=== PATIENT | male | born 1965 | race American Indian/Alaskan Native ===

== ENCOUNTER 2018-09-17 08:23 | Emergency (ER) | payer SELFPAY ==
--- NOTE | 2018-09-17 09:37 | Emergency Department Report ---
HPI - General Chief Complaint: Back Pain/Injury Time Seen by Provider: 09/17/18 09:04 - HPI HPI: Mr. Knowles is a 53-year-old male present with no problem medical condition presents ED complaining of lower right-sided foot pain that radiates down his thigh. Patient denies any recent injury. Patient states she has a history of disc herniation for the past 3 years. Patient states that it's aggravated intermittently. He denies fall, trauma or any other complaints ED Past Medical Hx - Past Medical History Hx Diabetes: Yes - Surgical History Additional Surgical History: HERNIA - Social History Smoking Status: Never Smoker Substance Use Type: None - Medications Home Medications: Home Medications Medication Instructions Recorded Confirmed Last Taken Type Cyclobenzaprine [Flexeril] 10 mg PO QHS #20 tablet 09/17/18 Unknown Rx Meloxicam [Mobic] 7.5 mg PO BID #20 tablet 09/17/18 Unknown Rx ED Review of Systems ROS: Stated complaint: BACK PAIN Other details as noted in HPI Comment: All other systems reviewed and negative Physical Exam - Physical Exam Vital Signs: Vital Signs 09/17/18 08:34 Temperature 98 F Pulse Rate 93 H Blood Pressure 166/93 O2 Sat by Pulse 99 Oximetry Physical Exam: GENERAL: Alert and oriented x3, no apparent distress, Normal Gait, atraumatic. HEAD: Head is normocephalic and a-traumatic. NECK: Supple. Non edematous, No lymphadenopathy or thyromegaly. No C-spine tenderness, full range of motion LUNGS: Symetrical with respiration, No wheezing, no rales or crackles, CTAB. HEART: S1, S2 present, regular rate and rhythm without murmur, no rubs, no gallops. Non tender to palpation BACK: Full range of motion, no spinal tenderness, Tenderness to palpation of the trapezius muscles and latissimus dorsi muscles of the back NEUROLOGIC: The patient is cooperative with no focal neurologic deficits. SKIN: Warm and dry, No lesions, No ulceration or induration present. ED Course Vital Signs 09/17/18 08:34 Temperature 98 F Pulse Rate 93 H Blood Pressure 166/93 O2 Sat by Pulse 99 Oximetry ED Medical Decision Making - Medical Decision Making 53-year-old male presents to ED with lumbar radiculopathy with sciatica right- sided ED course: Vital signs are normal patient is in no acute distress Discussed with patient follow-up with primary care physician. Discussed the patient and take medications as prescribed. Patient has no neurological deficit. Patient is alert and oriented 3 and understands all instructions given. Discussed drowsiness effect of Flexeril makes her drowsy and not to operate machinery while taking flexeril Critical care attestation.: If time is entered above; I have spent that time in minutes in the direct care of this critically ill patient, excluding procedure time. ED Disposition Clinical Impression: Lumbar radiculopathy Disposition: TO HOME OR SELFCARE Is pt being admited?: No Does the pt Need Aspirin: No Condition: Stable Instructions: Lumbar Radiculopathy (ED) Additional Instructions: f/u with pcp return if worsening symptoms take med as prescribed Prescriptions: Cyclobenzaprine [Flexeril] 10 mg PO QHS #20 tablet Meloxicam [Mobic] 7.5 mg PO BID #20 tablet Referrals: JADON PITTS MD [Referring] - 3-5 Days Forms: Work/School Release Form Time of Disposition: 09:37
== END 2018-09-17 09:58 | disposition home or self-care (01) ==
LOC: ED 08:23
CPT/HCPCS: 99282